=== PATIENT | male | born 1975 | race Caucasian/White ===

== ENCOUNTER 2017-03-03 09:25 | Day surgery (SDC) | payer OTHER ==
[~2017-03-03] VITALS: Ht 188 cm; Wt 92.5 kg
[~2017-03-03 09:25] MED LIST: ASPI325 PO; Ativan0.5 MG PO; BENTYL10 MG PO; Glucophage1000 MG PO; HYDACE5 PO; HYDACE7.5 PO; HYDR1TAB94 PO; HYOS.125 SL; IBUP800 PO; INS70/30I SC; INSULANPEN SC; LANS30EC PO; LORA1 PO; METO10 PO; OMEP10ER PO; OMEP20ER PO; OMEP40CA12 PO; ONDA8 PO; OXYACE5T PO; PANT40 PO; PROM25 PO; PROM25S PR; RANI150; RANI150 PO; RXHYDMOR2 PO; RXOXYACE PO; SUCR1 PO; SUCR1SU PO; TRAM50 PO; Zofran Odt4 MG SL
[2017-03-03] MEDS ORDERED: MELO7.5 PO (09:44)
== END 2017-03-03 10:47 | disposition home or self-care (01) ==
LOC: ORSCSDS 09:25
PROVIDERS: Internal Medicine Gastroenterology
PROC: 0DB98ZX Excision of Duodenum, Via Natural or Artificial Opening Endoscopic, Diagnostic (ICD-10-PCS; principal; 2017-03-03 10:45)
PROC: 0DB68ZX Excision of Stomach, Via Natural or Artificial Opening Endoscopic, Diagnostic (ICD-10-PCS; principal; 2017-03-03 10:45)
DX: R10.13 Epigastric pain (principal); K20.9 Esophagitis, unspecified; R11.2 Nausea with vomiting, unspecified; E11.9 Type 2 diabetes mellitus without complications; Z79.84 Long term (current) use of oral hypoglycemic drugs; Z79.899 Other long term (current) drug therapy; F17.210 Nicotine dependence, cigarettes, uncomplicated
CPT/HCPCS: 82947; 88305; 88342

== ENCOUNTER → 2018-03-15 | Outpatient (CLI) | payer OTHER ==
[~2018-03-15] MED LIST changes: +MELO7.5 PO
== END | disposition home or self-care (01) ==
LOC: LAB SHORT 11:00 → LAB 11:00 → LAB FUT 03-10 12:45
DX: K86.1 Other chronic pancreatitis (principal)
CPT/HCPCS: 82656

== ENCOUNTER 2019-06-19 09:14 | Day surgery (SDC) | payer OTHER ==
[~2019-06-19] VITALS: Ht 193 cm; Wt 99.2 kg
[~2019-06-19 09:14] MED LIST changes: +BASAGLAR K100 UNIT/2 SC; +CEFP200 PO; +COMPAZINE10 MG PO; +FURO20 PO; +Flomax0.4 MG PO; +GABA300 PO; +GABAPENTIN600 MG PO; +POTA10T PO; +Roxicodone5 MG PO; +Ventolin/Prove6.7 GM INH
--- NOTE | 2019-06-19 10:14 | NUR ---
06/19/19 1014 Megan Sequeira 2 IV ATTEMPTS BY LETY ROBERSON AND JT VALVE 1 SUCCESSFUL IV IN RAC BY LETY PT TOW
== END 2019-06-19 10:48 | disposition home or self-care (01) ==
LOC: ORSCSDS 09:14
PROVIDERS: Internal Medicine Gastroenterology
PROC: 0DB68ZX Excision of Stomach, Via Natural or Artificial Opening Endoscopic, Diagnostic (ICD-10-PCS; principal; 2019-06-19 09:15)
DX: R11.2 Nausea with vomiting, unspecified (principal); K21.9 Gastro-esophageal reflux disease without esophagitis; K44.9 Diaphragmatic hernia without obstruction or gangrene; K29.70 Gastritis, unspecified, without bleeding; E78.5 Hyperlipidemia, unspecified; E11.9 Type 2 diabetes mellitus without complications; F17.210 Nicotine dependence, cigarettes, uncomplicated; Z79.899 Other long term (current) drug therapy
CPT/HCPCS: 82947; J2704; J7120

== ENCOUNTER 2020-11-07 06:59 | Observation (INO) | payer OTHER ==
[~2020-11-07] VITALS: Ht 193 cm; Wt 90.5 kg
[2020-11-07 07:14] LABS: BASOPHILS ABSOLUTE AUTO 0.09 K/mm3 (0.00-0.23); BASOPHILS PERCENT AUTO 1 % (0-2); EOSINOPHILS PERCENT AUTO 1 % (0-6); Hemoglobin 13.8 g/dL (13.5-17.5); IMMATURE GRAN ABSOLUTE AUTO 0.06 K/mm3 (0.00-0.10); IMMATURE GRAN PERCENT AUTO 0 % (0-1); LYMPHOCYTES ABSOLUTE AUTO 2.09 K/mm3 (0.84-5.20); LYMPHOCYTES PERCENT AUTO 13 % (21-46); MONOCYTES ABSOLUTE AUTO 1.15 K/mm3 (0.16-1.47); MONOCYTES PERCENT AUTO 7 % (4-13); Mean Corpuscular HGB 30.7 pg (26.0-34.0); Mean Corpuscular HGB Conc 33.7 g/dL (31.5-36.5); Mean Corpuscular Volume 91 fL (80-100); Mean Platelet Volume 10.2 fL (9.1-12.4); NEUTROPHILS ABSOLUTE AUTO 12.74 K/mm3 (1.96-9.15); NEUTROPHILS PERCENT AUTO 78 % (41-73); Platelet Count 318 K/mm3 (150-400); RDW Coefficient Variation 12.4 % (11.7-14.2); RDW Standard Deviation 41.3 fL (35.1-46.3); White Blood Cell Count 16.23 K/mm3 (4.00-11.30)
[2020-11-07 07:24] LABS: Source, Urine Clean Catch
[2020-11-07 07:33] LABS: Bilirubin, Urine Neg (Neg); Blood, Urine 2+ (Neg); Glucose Qualitative, Urine 3+ (Neg); Ketones, Urine 1+ (Neg); Leukocyte Esterase, Urine Neg (Neg); Nitrite, Urine Neg (Neg); Protein, Urine 3+ (Neg); Urobilinogen, Urine NORM (Normal)
[2020-11-07 07:33] LABS: Alanine Aminotransfer (ALT/SGP 16 U/L (12-78); Albumin, Blood 3.6 g/dL (3.4-5.0); Albumin/Globulin Ratio 1.1 (0.8-1.8); Alk Phos 58 U/L (50-136); Anion Gap 5 mmol/L (6-16); Aspartate Aminotrans (AST/SGOT 12 U/L (12-37); Bilirubin, Total 0.3 mg/dL (0.1-1.0); Blood Urea Nitrogen 16 mg/dL (8-24); Bun/Creatinine Ratio 19.8 (12.0-20.0); CO2, Blood 25 mmol/L (21-32); Calcium, Blood 9.1 mg/dL (8.5-10.1); Chloride, Blood 108 mmol/L (98-108); Creatinine, Blood 0.81 mg/dL (0.60-1.20); Globulin, Blood 3.3 g/dL (2.2-4.0); Glomerular Filtration Rate >60 (60-); Glucose, Blood 229 mg/dL (70-99); Potassium, Blood 4.5 mmol/L (3.5-5.5); Sodium, Blood 138 mmol/L (136-145); Total Protein, Blood 6.9 g/dL (6.4-8.2)
[2020-11-07 07:51] LABS: U Amphetamine Screen Not Detected; U Barbituate Screen Not Detected; U Benzodiazapine Screen Not Detected; U Buprenorphine Screen Not Detected; U Cannabinoids Screen DETECTED; U Cocaine Screen Not Detected; U Methadone Screen Not Detected; U Methamphetamine Screen Not Detected; U Opiates Screen DETECTED; U Oxycodone Screen Not Detected; U Phencyclidine Screen Not Detected; U Propoxyphene Screen Not Detected
[2020-11-07 07:53] LABS: Appearance, Urine Clear (Clear); Color, Urine Yellow (P-Yellow)
[2020-11-07 07:54] LABS: Bacteria Not Seen /hpf; Red Blood Cells, Urine 0-2 /hpf (0-2); Squamous Epithelial Cells Rare /hpf (Few)
[2020-11-07] MEDS ORDERED: METF500 PO (08:20)
[2020-11-07 10:56] LABS: Ethanol (Alcohol), Blood, Med <3 mg/dL
[2020-11-07 11:01] LABS: Acetaminophen, Random <2.0 ug/mL (10.0-30.0)
[2020-11-07] MEDS ORDERED: INSULIN AS100 UNIT/8 SC ×2 (17:52)
[2020-11-07] MEDS ORDERED: GABAPENTIN600 MG PO ×2 (17:53)
[2020-11-07] MEDS ORDERED: OMEP20ER PO ×2 (17:53)
[2020-11-07] MEDS ORDERED: SEMGLEE PE100 UNIT/1 SC ×2 (17:54)
[2020-11-07] MEDS ORDERED: METOCLOPRAMIDE H PO (17:54)
[2020-11-07] MEDS ORDERED: ATOR40TA PO ×2 (17:54)
[2020-11-07 19:06] LABS: SARS-Cov-2 (COVID-19) PCR, MMC NEGATIVE (NEGATIVE)
--- NOTE | 2020-11-08 00:52 | NUR ---
NURSES NOTE ASTRID NEURO. PT SLEEPING.
[2020-11-08 04:59] LABS: BASOPHILS ABSOLUTE AUTO 0.05 K/mm3 (0.00-0.23); BASOPHILS PERCENT AUTO 0 % (0-2); EOSINOPHILS ABSOLUTE AUTO 0.01 K/mm3 (0.00-0.68); EOSINOPHILS PERCENT AUTO 0 % (0-6); Hematocrit 36.5 % (37.0-53.0); Hemoglobin 12.2 g/dL (13.5-17.5); IMMATURE GRAN ABSOLUTE AUTO 0.05 K/mm3 (0.00-0.10); IMMATURE GRAN PERCENT AUTO 0 % (0-1); LYMPHOCYTES ABSOLUTE AUTO 2.14 K/mm3 (0.84-5.20); LYMPHOCYTES PERCENT AUTO 16 % (21-46); MONOCYTES ABSOLUTE AUTO 1.32 K/mm3 (0.16-1.47); MONOCYTES PERCENT AUTO 10 % (4-13); Mean Corpuscular HGB 30.6 pg (26.0-34.0); Mean Corpuscular HGB Conc 33.4 g/dL (31.5-36.5); Mean Corpuscular Volume 92 fL (80-100); Mean Platelet Volume 10.2 fL (9.1-12.4); NEUTROPHILS ABSOLUTE AUTO 10.11 K/mm3 (1.96-9.15); NEUTROPHILS PERCENT AUTO 74 % (41-73); Platelet Count 294 K/mm3 (150-400); RDW Coefficient Variation 12.3 % (11.7-14.2); RDW Standard Deviation 41.7 fL (35.1-46.3); Red Blood Cell Count 3.99 M/mm3 (4.30-5.90); White Blood Cell Count 13.68 K/mm3 (4.00-11.30)
--- NOTE | 2020-11-08 05:00 | NUR ---
SHIFT SUMMARY PT AAOX4. ON NEURO CHECKS Q4. NEW ONSET OF SEIZURES. PT ON TELE SR. NO SEIZURES LIKE ACTIVITY DURING THIS SHIFT. NEURO CHECKS WNL. PT RESTING. NO DISTRESS NOTED. NO SIGNIFICANT EVENTS DURING THIS SHIFT.
[2020-11-08 05:41] LABS: Anion Gap 6 mmol/L (6-16); Blood Urea Nitrogen 15 mg/dL (8-24); Bun/Creatinine Ratio 22.4 (12.0-20.0); CO2, Blood 25 mmol/L (21-32); Calcium, Blood 8.4 mg/dL (8.5-10.1); Chloride, Blood 108 mmol/L (98-108); Creatinine, Blood 0.67 mg/dL (0.60-1.20); Glomerular Filtration Rate >60 (60-); Glucose, Blood 165 mg/dL (70-99); Potassium, Blood 3.8 mmol/L (3.5-5.5); Sodium, Blood 139 mmol/L (136-145)
--- NOTE | 2020-11-08 18:28 | NUR ---
AT APPROX 1530, MR. MASON WAS DISCHARGED TO HOME. HE IS ALERT AND ORIENTED TO PERSON, PLACE, AND DATE. HE IS NOT IN ACUTE DISTRESS. HE DID NOT HAVE ANY SEIZURE ACTIVITY NOTED TODAY WITH NEURO CHECKS UNREMARKABLE. HE REPORTED BACK PAIN 8/10 THIS AM AND REPOSITION SELF. HE REPORTED BACK PAIN WAS RESOLVED. HE THINKS PAIN RELATED TO BED. HE WAS CALM AND COOPERATIVE THIS SHIFT. HE TOLERATED ADA DIET. HE DENIED FEELING NAUSEA AND HAD NO VOMITING. HE DENIES ANY DISCOMFORT PRIOR TO ADMISSION. HIS WAS CONCERNED ABOUT HIS MENTAL STATUS (EX: HE DIDNT WANT TO LEAVE TO GO SMOKE). SHE WAS ALSO CONCERNED ABOUT PANCREATITIS, AND NOT EATING SOLID FOOD. SPOUSE'S INFO WAS PROVIDED TO DR. DOWNEY AND HE SPOKE WITH THE SPOUSE.
[2020-11-09] MEDS ORDERED: LEVE500 PO (08:06)
== END 2020-11-08 15:30 | disposition home or self-care (01) ==
LOC: ER 06:59 → MEDS 07:00
PROVIDERS: Emergency Medicine; Student in an Organized Health Care Education/Training Program; ADMIT Internal Medicine
DX: R56.9 Unspecified convulsions (principal); F17.210 Nicotine dependence, cigarettes, uncomplicated; I45.10 Unspecified right bundle-branch block; E11.65 Type 2 diabetes mellitus with hyperglycemia; J32.8 Other chronic sinusitis; F19.90 Other psychoactive substance use, unspecified, uncomplicated; K86.1 Other chronic pancreatitis; Z20.822 Contact with and (suspected) exposure to COVID-19; Z88.8 Allergy status to other drugs, medicaments and biological substances; Z79.4 Long term (current) use of insulin
CPT/HCPCS: 36415; 70551; 80048; 80053; 81001; 82947; 83690; 85025; 87086; 93005; 93010; 95819; 96365; 96366; 96375; 96376; 99285-25; A9270; G0378; G0480; J2060; J2310; J3411; J3475; J7030; J7042; U0004

== ENCOUNTER 2020-11-08 16:32 | Emergency (ER) | payer OTHER ==
[~2020-11-08] VITALS: Ht 193 cm; Wt 102.1 kg
[~2020-11-08 16:32] MED LIST changes: +ATOR40TA PO; +INSULIN AS100 UNIT/8 SC; +METF500 PO; +METOCLOPRAMIDE H PO; +SEMGLEE PE100 UNIT/1 SC
[2020-11-09] MEDS ORDERED: LEVE500 PO (08:06)
== END 2020-11-08 18:30 | disposition home or self-care (01) ==
LOC: ER 16:32
DX: R56.9 Unspecified convulsions (principal); Z88.8 Allergy status to other drugs, medicaments and biological substances; Z79.899 Other long term (current) drug therapy; Z79.4 Long term (current) use of insulin; E11.9 Type 2 diabetes mellitus without complications; F17.210 Nicotine dependence, cigarettes, uncomplicated
CPT/HCPCS: 99284

== ENCOUNTER 2020-11-09 18:18 | Emergency (ER) | payer OTHER ==
[~2020-11-09] VITALS: Ht 182.9 cm; Wt 79.4 kg
[~2020-11-09 18:18] MED LIST changes: +LEVE500 PO
== END 2020-11-09 18:53 | disposition home or self-care (01) ==
LOC: ER 18:18
DX: R56.9 Unspecified convulsions (principal); E11.9 Type 2 diabetes mellitus without complications; F17.210 Nicotine dependence, cigarettes, uncomplicated; Z88.8 Allergy status to other drugs, medicaments and biological substances; Z79.899 Other long term (current) drug therapy; Z79.4 Long term (current) use of insulin
CPT/HCPCS: 99284